=== PATIENT | male | born 1985 | race Caucasian/White ===

== ENCOUNTER 2018-03-23 08:54 | Emergency (ER) | payer OTHER ==
[~2018-03-23] VITALS: Ht 170.2 cm; Wt 83.2 kg
[2018-03-23 08:57] VITALS: BP 141/96
--- NOTE | 2018-03-23 09:03 | NUR ---
PT TO ROOM FROM LOBBY
--- NOTE | 2018-03-23 09:08 | NUR ---
32 Y/O MALE PRESENTS TO ED WITH C/O RIGHT SHOULDER PAIN. "I HURT IT THE . IT HURTS ON THE BACK OF MY SHOULDER AND I GET A BURNING SENSATION DOWN MY ARM. I WANT A MRI BEFORE PT." NO ACUTE DISTRESS NOTED. EDPA BEDSIDE.
--- NOTE | 2018-03-23 09:48 | NUR ---
Patient/Caregiver given discharge instructions and they have confirmed that they understand the instructions. Patient ambulatory with steady gait. PT LEFT WITH ALL PERSONAL BELONGINGS.
== END 2018-03-23 09:50 | disposition home or self-care (01) ==
LOC: ED 09:22
DX: M54.6 Pain in thoracic spine (principal)
CPT/HCPCS: 99281